=== PATIENT | female | born 1985 | race Caucasian/White ===

== ENCOUNTER 2019-01-22 10:34 | Outpatient (CLI) | payer OTHER ==
[~2019-01-22] VITALS: Ht 165.1 cm; Wt 78.8 kg
[~2019-01-22 10:34] MED LIST: PNV11TAB PO
[2019-01-22 11:33] VITALS: BP 107/64; PULSE 79; RESP 18; Ht 165.1 cm; Wt 78.8 kg
== END 2019-01-22 12:30 | disposition home or self-care (01) ==
LOC: OBT 10:34 → L-D 10:36 → OBT 12:30
PROVIDERS: ATTEND Obstetrics & Gynecology
DX: O36.8130 Decreased fetal movements, third trimester, not applicable or unspecified (principal); Z3A.36 36 weeks gestation of pregnancy
CPT/HCPCS: 76818; Z7500; G0463